=== PATIENT | male | born 1960 | race Two or more races ===

== ENCOUNTER → 2017-02-26 | Emergency (ER) | payer MEDICAID, OTHER ==
[~2017-02-26] VITALS: Ht 172.7 cm; Wt 63.5 kg
[~2017-02-26] MED LIST: IBUPROFEN 400 MG TABLET ONE; IBUPROFEN 400 MG TABLET PO ONE
[2017-02-26 13:19] VITALS: BP 146/92
== END | disposition home or self-care (01) ==
LOC: ER 13:22
DX: S70.02XA Contusion of left hip, initial encounter (principal); S50.312A Abrasion of left elbow, initial encounter; M70.22 Olecranon bursitis, left elbow; I10 Essential (primary) hypertension; Y03.0XXA Assault by being hit or run over by motor vehicle, initial encounter; Y93.02 Activity, running; Y92.488 Other paved roadways as the place of occurrence of the external cause; Y99.8 Other external cause status
CPT/HCPCS: 73080; 73503; 99284; A4606; Z7610; 73502